=== PATIENT | female | born 1950 | race Caucasian/White ===

== ENCOUNTER 2019-09-19 12:04 | Emergency (ER) | payer OTHER ==
[~2019-09-19] VITALS: Wt 105.7 kg
[2019-09-19 12:37] LABS: BASO % 0.3 % (0.0-1.0); EOS # 0.2 10*3/uL (0.0-0.4); EOS % 2.4 % (1.0-4.0); HEMATOCRIT 33.2 % (37.0-47.0); HEMOGLOBIN 10.4 g/dl (12.0-16.0); LYMPH # 1.2 10*3/uL (1.3-4.4); LYMPH % 18.4 % (27.0-41.0); MEAN CELL VOLUME 103.1 fl (81.0-99.0); MEAN CORPUSCULAR HGB 32.3 pg (27.0-31.0); MEAN CORPUSCULAR HGB CONC 31.3 g/dl (33.0-37.0); MEAN PLATELET VOLUME 12.6 fl (9.6-12.3); MONO # 0.4 10*3/uL (0.1-1.0); MONO % 6.3 % (3.0-9.0); NEUT # 4.6 10*3/uL (2.3-7.9); NEUT % 72.3 % (47.0-73.0); PLATELET COUNT AUTOMATED 134 10*3/uL (130-400); RED BLOOD COUNT 3.22 10*6/uL (4.10-5.10); RED CELL DISTRI WIDTH 13.6 % (0-14.5); WHITE BLOOD COUNT 6.4 10*3/uL (4.8-10.8)
[2019-09-19 12:48] LABS: ACT PARTIAL THROMBO TIME 34.7 SECONDS (20.0-32.1); INTERNATIONAL NORM RATIO 0.9 (2.0-3.5)
[2019-09-19 12:55] LABS: ALBUMIN 2.9 gm/dl (3.1-4.5); ALKALINE PHOSPHATASE 46 U/L (45-117); BUN 34 mg/dl (7-24); CHLORIDE 108 mmol/L (98-107); CREATININE 2.21 mg/dL (0.55-1.02); POTASSIUM 4.5 mmol/L (3.5-5.1); SGOT/AST 14 IU/L (3-35); SGPT/ALT 17 U/L (12-78); SODIUM 141 mmol/L (136-145); TOTAL PROTEIN 6.2 gm/dL (6.4-8.2)
[2019-09-19 13:01] LABS: TROPONIN I < 0.015 ng/ml (<0.045)
== END 2019-09-19 15:08 | disposition short-term general hospital (02) ==
LOC: ED 12:04
PROVIDERS: Emergency Medicine
DX: R00.1 Bradycardia, unspecified (principal); R53.1 Weakness; R79.1 Abnormal coagulation profile; I10 Essential (primary) hypertension; K21.9 Gastro-esophageal reflux disease without esophagitis; E11.40 Type 2 diabetes mellitus with diabetic neuropathy, unspecified; I25.10 Atherosclerotic heart disease of native coronary artery without angina pectoris; Z86.73 Personal history of transient ischemic attack (TIA), and cerebral infarction without residual deficits

== ENCOUNTER 2020-03-24 13:46 | Inpatient (IN) | payer OTHER ==
[~2020-03-24] VITALS: Ht 170.1 cm; Wt 99.4 kg
[2020-03-24 13:49] VITALS: BP 136/57
[2020-03-24 14:58] LABS: BASO # 0.1 10*3/uL (0.0-0.1); BASO % 0.4 % (0.0-1.0); EOS # 0.1 10*3/uL (0.0-0.4); EOS % 0.3 % (1.0-4.0); HEMATOCRIT 34.8 % (37.0-47.0); LYMPH # 2.6 10*3/uL (1.3-4.4); LYMPH % 15.2 % (27.0-41.0); MEAN CELL VOLUME 104.8 fl (81.0-99.0); MEAN CORPUSCULAR HGB 31.9 pg (27.0-31.0); MEAN CORPUSCULAR HGB CONC 30.5 g/dl (33.0-37.0); MEAN PLATELET VOLUME 11.5 fl (9.6-12.3); MONO % 5.7 % (3.0-9.0); NEUT % 77.3 % (47.0-73.0); PLATELET COUNT AUTOMATED 214 10*3/uL (130-400); RED BLOOD COUNT 3.32 10*6/uL (4.10-5.10); WHITE BLOOD COUNT 16.8 10*3/uL (4.8-10.8)
[2020-03-24 15:13] LABS: ALBUMIN 3.2 gm/dl (3.1-4.5); CREATININE 2.87 mg/dL (0.55-1.02); TOTAL PROTEIN 7.3 gm/dL (6.4-8.2)
[2020-03-24 15:34] LABS: BILIRUBIN 1+ (NEGATIVE); CLARITY SL CLOUDY (CLEAR); COLOR YELLOW (YELLOW); GLUCOSE NEGATIVE (NEGATIVE); KETONE NEGATIVE (NEGATIVE)
[2020-03-24 15:35] LABS: BLOOD NEGATIVE (NEGATIVE); LEUKO ESTERASE NEGATIVE (NEGATIVE); NITRITE NEGATIVE (NEGATIVE); SPECIFIC GRAVITY 1.025 (1.005-1.030); UROBILINOGEN 0.2 E.U./dl (0.2-1.0)
[2020-03-24 15:39] LABS: BACTERIA TRACE; EPITHELIAL CELLS 0-2; WBC 0-2 wbc/hpf (0-5)
[2020-03-24 17:32] VITALS: BP 146/50
[2020-03-24] MEDS ORDERED: CLARITIN10 MG PO (18:49)
[2020-03-24] MEDS ORDERED: AMLODIPINE BESYL5 MG PO (18:49)
[2020-03-24] MEDS ORDERED: COLACE100 MG PO (18:49)
[2020-03-24] MEDS ORDERED: ESCITALOPRAM OX20 MG PO (18:50)
[2020-03-24] MEDS ORDERED: LANTUS SOL100 UNIT/1 SQ (18:51)
[2020-03-24] MEDS ORDERED: MELATONIN5 M6 PO (18:51)
[2020-03-24] MEDS ORDERED: LASIX40 MG PO (18:51)
[2020-03-24] MEDS ORDERED: METFORMIN HYDR500 MG PO (18:52)
[2020-03-24] MEDS ORDERED: MULTIVITAMINS1 EAC5 PO (18:52)
[2020-03-24] MEDS ORDERED: POTASSIUM CHLO20 ME3 PO (18:53)
[2020-03-24] MEDS ORDERED: RISPERIDONE0.25 M2 PO (18:54)
[2020-03-24] MEDS ORDERED: ATORVASTATIN CA10 M1 PO (18:54)
[2020-03-24] MEDS ORDERED: XALATAN 0.005%2.5 ML INTRAOC (18:54)
--- NOTE | 2020-03-24 18:54 | NUR ---
DR. SHAY NOTIFIED OF CONSULT.
[2020-03-24] MEDS ORDERED: GABAPENTIN600 MG PO (18:55)
[2020-03-24] MEDS ORDERED: ELIQUIS5 M1 PO (18:55)
[2020-03-24] MEDS ORDERED: GLIMEPIRIDE4 M1 PO (18:56)
[2020-03-24] MEDS ORDERED: OCEAN104 ML NAS (18:57)
[2020-03-24] MEDS ORDERED: HYDRALAZINE HC100 MG PO (18:58)
[2020-03-24] MEDS ORDERED: 8 HOUR PAIN RE650 M1 PO (18:58)
[2020-03-24] MEDS ORDERED: TUMS200 MG PO (18:59)
[2020-03-24] MEDS ORDERED: METHOCARBAMOL500 M1 PO (18:59)
[2020-03-24] MEDS ORDERED: LOPERAMIDE HCL2 MG PO (18:59)
[2020-03-24 19:00] VITALS: BP 128/42
[2020-03-24] MEDS ORDERED: ONDANSETRON4 MG SL (19:00)
[2020-03-24 19:58] LABS: ABG BASE EXCESS -0.8 mmol/L (-2.0-2.0); ARTERIAL BLOOD GAS PH 7.28 (7.35-7.45)
--- NOTE | 2020-03-24 19:58 | NUR ---
DR. BHATT NOTIFIED OF CRITICAL TROPONIN OF 0.115.
[2020-03-24 20:00] VITALS: BP 142/54
--- NOTE | 2020-03-24 20:15 | NUR ---
DR. BHATT NOTIFIED OF CRITICAL LACTIC ACID OF 2.8.
--- NOTE | 2020-03-24 22:40 | NUR ---
DR. BLANCAS NOTIFIED THAT PATIENT HAS A CRITICAL TROPONIN OF 0.158 AND LACTIC ACID OF 2.5.
[2020-03-25] VITALS: BP 143/48
--- NOTE | 2020-03-25 01:07 | NUR ---
DR. BLANCAS NOTIFIED OF CRITICAL TROPONIN OF 0.190.
[2020-03-25 06:41] LABS: BASO # 0.1 10*3/uL (0.0-0.1); BASO % 0.4 % (0.0-1.0); EOS # 0.1 10*3/uL (0.0-0.4); EOS % 0.5 % (1.0-4.0); HEMATOCRIT 32.1 % (37.0-47.0); LYMPH # 1.5 10*3/uL (1.3-4.4); LYMPH % 13.1 % (27.0-41.0); MEAN CELL VOLUME 103.5 fl (81.0-99.0); MEAN CORPUSCULAR HGB 31.6 pg (27.0-31.0); MEAN CORPUSCULAR HGB CONC 30.5 g/dl (33.0-37.0); MEAN PLATELET VOLUME 11.7 fl (9.6-12.3); MONO # 0.7 10*3/uL (0.1-1.0); MONO % 6.5 % (3.0-9.0); NEUT # 8.9 10*3/uL (2.3-7.9); NEUT % 78.1 % (47.0-73.0); PLATELET COUNT AUTOMATED 191 10*3/uL (130-400); RED CELL DISTRI WIDTH 14.8 % (0-14.5); WHITE BLOOD COUNT 11.4 10*3/uL (4.8-10.8)
[2020-03-25 07:01] LABS: ACT PARTIAL THROMBO TIME 38.8 SECONDS (20.0-32.1)
[2020-03-25 07:07] LABS: POTASSIUM 5.1 mmol/L (3.5-5.1)
[2020-03-25 07:37] LABS: CREATININE 3.3 mg/dL (0.55-1.02); FREE T4 0.98 ng/dl (0.76-1.46); THYROID STIM HORMONE (HS) 4.45 uIU/ml (0.358-4.75)
[2020-03-25 07:53] LABS: VITAMIN D, 25-HYDROXY 21.4 ng/mL (30-100)
[2020-03-25 08:00] VITALS: BP 136/70
--- NOTE | 2020-03-25 11:12 | NUR ---
PT WAS ADMITTED FROM [facility]. WILL RETURN TO [facility] WHEN MEDICALLY STABLE. WILL REQUIRE PRECERT AND NEG COVID PRIOR TO RETURNING. WILL CONTINUE TO FOLLOW.
[2020-03-25 12:00] VITALS: BP 129/64
[2020-03-25 14:00] VITALS: BP 129/64
[2020-03-25 16:00] VITALS: BP 134/69
[2020-03-25 20:00] VITALS: BP 161/56
--- NOTE | 2020-03-25 22:38 | NUR ---
JESUS CATH INSERTED PER DR. RAM'S CONSULT NOTE ORDER. PATIENT TOLERATED WELL. 500CC RETURN INSTANTLY. WILL CONTINUE TO MONITOR. CALL LIGHT IN REACH.
[2020-03-26] VITALS: BP 148/53
--- NOTE | 2020-03-26 05:26 | NUR ---
PATIENT MEDICATED WITH TYLENOL FOR COMPLAINTS OF HIP PAIN. WILL CONTINUE TO MONITOR. JESUS CATH PATENT DRAINING YELLOW URINE. NO SIGNS OR SYMPTOMS OF DISTRESS NOTED.
[2020-03-26 08:00] VITALS: BP 146/66
[2020-03-26 08:53] LABS: BASO % 0.4 % (0.0-1.0); EOS # 0.2 10*3/uL (0.0-0.4); EOS % 1.7 % (1.0-4.0); HEMATOCRIT 31.1 % (37.0-47.0); LYMPH # 1.5 10*3/uL (1.3-4.4); LYMPH % 15.1 % (27.0-41.0); MEAN CORPUSCULAR HGB 31.8 pg (27.0-31.0); MEAN CORPUSCULAR HGB CONC 31.5 g/dl (33.0-37.0); MEAN PLATELET VOLUME 11.2 fl (9.6-12.3); MONO # 0.5 10*3/uL (0.1-1.0); NEUT # 7.6 10*3/uL (2.3-7.9); NEUT % 77.2 % (47.0-73.0); PLATELET COUNT AUTOMATED 166 10*3/uL (130-400); RED BLOOD COUNT 3.08 10*6/uL (4.10-5.10); RED CELL DISTRI WIDTH 14.4 % (0-14.5); WHITE BLOOD COUNT 9.9 10*3/uL (4.8-10.8)
[2020-03-26 09:03] LABS: CREATININE 2.41 mg/dL (0.55-1.02)
[2020-03-26 09:05] LABS: POTASSIUM 4.1 mmol/L (3.5-5.1)
[2020-03-26 12:00] VITALS: BP 132/50
--- NOTE | 2020-03-26 12:52 | NUR ---
DR RAM ROUNDED AND NO NEW ORDERS.
--- NOTE | 2020-03-26 14:45 | NUR ---
NORCO 5/325 MG GIVEN FOR C/O GENERALIZED PAIN.07/15.
[2020-03-26 16:00] VITALS: BP 149/63
[2020-03-26 20:00] VITALS: BP 145/54
--- NOTE | 2020-03-26 20:00 | NUR ---
PATIENT ASSESSMENT COMPLETED AT THIS TIME WITHOUT INCIDENT. PATIENT DENIES NIKIA CHEST PAIN, SHORTNESS OF BREATH OR NEEDS AT THIS TIME. CALL LIGHT WITHIN REACH, WILL CONTINUE TO MONITOR.
--- NOTE | 2020-03-26 21:52 | NUR ---
PRN NORCO GIVEN AT THIS TIME FOR PATIENT COMPLAINT OF 6/10 PAIN IN HER VAGINA. A&O X2, CALL LIGHT WITHIN REACH, WILL CONTINUE TO MONITOR.
--- NOTE | 2020-03-26 22:42 | NUR ---
PATIENT RESTING IN BED IN A POSITION OF COMFORT WITH EYES CLOSED AT THIS TIME, RESPIRATIONS EASY AND NON-LABORED ON NC 2LPM. PRN NORCO APPEARS EFFECTIVE AT THIS TIME, CALL LIGHT WITHIN REACH, WILL CONTINUE TO MONITOR.
[2020-03-27] VITALS: BP 143/64
--- NOTE | 2020-03-27 01:07 | NUR ---
24 HOUR CHART CHECK COMPLETE
--- NOTE | 2020-03-27 02:08 | NUR ---
PRN TYLENOL GIVEN PO AT THIS TIME FOR COMPLAINT OF BACK PAIN, WHEN ASKED THE NUMERICAL SEVERITY OF HER PAIN THE PATIENT REPEATED "MY BACK, MY BACK HURTS". A&O X2, CALL LIGHT WITHIN REACH. WILL CONTINUE TO MONITOR.
--- NOTE | 2020-03-27 03:00 | NUR ---
PATIENT RESTING IN BED IN A POSITION OF COMFORT WITH EYES CLOSED AT THIS TIME, RESPIRATIONS EASY AND NON-LABORED AT THIS TIME. PRN TYLENOL APPEARS EFFECTIVE AT THIS TIME. CALL LIGHT WITHIN REACH, WILL CONTINUE TO MONITOR.
[2020-03-27 06:27] LABS: BASO % 0.3 % (0.0-1.0); EOS # 0.2 10*3/uL (0.0-0.4); EOS % 2.5 % (1.0-4.0); HEMATOCRIT 31.4 % (37.0-47.0); LYMPH % 13.2 % (27.0-41.0); MEAN CELL VOLUME 98.4 fl (81.0-99.0); MEAN CORPUSCULAR HGB 32.3 pg (27.0-31.0); MEAN CORPUSCULAR HGB CONC 32.8 g/dl (33.0-37.0); MEAN PLATELET VOLUME 11.7 fl (9.6-12.3); MONO # 0.4 10*3/uL (0.1-1.0); NEUT # 5.6 10*3/uL (2.3-7.9); NEUT % 77.3 % (47.0-73.0); PLATELET COUNT AUTOMATED 182 10*3/uL (130-400); RED BLOOD COUNT 3.19 10*6/uL (4.10-5.10); RED CELL DISTRI WIDTH 13.8 % (0-14.5); WHITE BLOOD COUNT 7.2 10*3/uL (4.8-10.8)
[2020-03-27 06:58] LABS: ALBUMIN 2.9 gm/dl (3.1-4.5); CREATININE 1.66 mg/dL (0.55-1.02); POTASSIUM 3.5 mmol/L (3.5-5.1)
[2020-03-27 08:00] VITALS: BP 128/58
--- NOTE | 2020-03-27 10:07 | NUR ---
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 PATIENT WILL NEED COVID TEST TO RETURN WHEN MEDICALLY STABLE.
[2020-03-27 12:00] VITALS: BP 134/57
--- NOTE | 2020-03-27 13:20 | NUR ---
FRONT COUNTER ATTENDANT FAXED UPDATES TO [facility]
[2020-03-27 16:00] VITALS: BP 161/59
[2020-03-27 20:00] VITALS: BP 146/65
--- NOTE | 2020-03-27 20:25 | NUR ---
PATIENT ASSESSMENT COMPLETED AT THIS TIME WITHOUT INCIDENT. PATIENT DENIES ANY CHEST PAIN, SOB, OR DISTRESS AT THIS TIME. A&O X3 CALL LIGHT WITHIN REACH, WILL CONTINUE TO MONITOR
[2020-03-28] VITALS: BP 151/56
[2020-03-28 06:34] LABS: BASO % 0.3 % (0.0-1.0); EOS # 0.1 10*3/uL (0.0-0.4); EOS % 2.2 % (1.0-4.0); HEMATOCRIT 34.4 % (37.0-47.0); LYMPH # 0.9 10*3/uL (1.3-4.4); LYMPH % 15.1 % (27.0-41.0); MEAN CORPUSCULAR HGB 31.6 pg (27.0-31.0); MEAN CORPUSCULAR HGB CONC 32.3 g/dl (33.0-37.0); MEAN PLATELET VOLUME 12.3 fl (9.6-12.3); MONO # 0.4 10*3/uL (0.1-1.0); MONO % 6.2 % (3.0-9.0); NEUT # 4.5 10*3/uL (2.3-7.9); NEUT % 75.9 % (47.0-73.0); PLATELET COUNT AUTOMATED 194 10*3/uL (130-400); RED BLOOD COUNT 3.51 10*6/uL (4.10-5.10)
[2020-03-28 06:45] LABS: CREATININE 1.41 mg/dL (0.55-1.02); POTASSIUM 3.3 mmol/L (3.5-5.1)
--- NOTE | 2020-03-28 08:10 | NUR ---
MEDICATED WITH PRN PO NORCO FOR C/O GENERALIZED BODY ACHING.
--- NOTE | 2020-03-28 09:00 | NUR ---
case management visits with patient, she is a [facility] resident of [facility] and will return when medically stable, case management will follow
--- NOTE | 2020-03-28 09:02 | NUR ---
PRN PO NORCO EFFECTIVE, PER PATIENT.
--- NOTE | 2020-03-28 11:06 | NUR ---
PHYSICAL THERAPY Initial eval done at bedside. See eval for details. brief synopsis: requires total assist supine to sit to supine; sttod from bed x4 efforts with initially needing mod assist, then max assist for 10-20 sec each time. recommend dc back to long-term care. Griselda Cohn, PT
[2020-03-28 12:00] VITALS: BP 138/57
--- NOTE | 2020-03-28 15:52 | NUR ---
Nutritional Support Services Note: Dx o CHF, sepsis and CVA. Appetite is fair for meals. She receives a cardiac diet as ordered with 1500cc fluid restriction. Staff to encourage intake. She declined a supplement at this time, will send a night snack. Will follow as needed. Maday Claire Rdn Ld
[2020-03-28 16:00] VITALS: BP 160/58
[2020-03-28 20:00] VITALS: BP 176/64
--- NOTE | 2020-03-28 20:05 | NUR ---
PATIENT RESTING IN BED IN A POSITION OF COMFORT AT THIS TIME WATCHING TELEVISION. PATIENT ASSESSMENT COMPLETED WITHOUT INCIDENT, PATIENT DENIES ANY PAIN, SHORTNESS OF BREATH, OR OTHER DISTRESS AT THIS TIME. CALL LIGHT WITHIN REACH, WILL CONTINUE TO MONITOR.
--- NOTE | 2020-03-28 21:17 | NUR ---
PRN NORCO GIVEN AT THIS TIME FOR PATIENT COMPLAINT OF BACK AND BILATERAL LEG PAIN 5/10 AT THIS TIME. PRN RESTORIL GIVEN AT THIS TIME PATIENT STATED "I'M SO TIRED BUT I CAN'T FALL ASLEEP". A&O X3 AT THIS TIME, CALL LIGHT WITHIN REACH, WILL CONTINUE TO FOLLOW.
--- NOTE | 2020-03-28 22:05 | NUR ---
PATIENT RESTING IN BED IN A POSITION OF COMFORT, REQUESTING TELEVISION AND LIGHTS BE TURNED OFF SO THAT SHE CAN GO TO SLEEP. A&O X3, CALL LIGHT WITHIN REACH, WILL CONTINUE TO MONITOR.
[2020-03-29] VITALS: BP 154/56
--- NOTE | 2020-03-29 00:15 | NUR ---
PATIENT RESTING IN BED IN A POSITION OF COMFORT WITH EYES CLOSED, RESPIRATIONS EASY AND NON-LABORED AT THIS TIME WITH NASAL CANNULA 2LPM IN USE. CALL LIGHT WITHIN REACH, BED ALARM ON AND FUNCTIONAL. WILL CONTINUE TO MONITOR.
--- NOTE | 2020-03-29 04:45 | NUR ---
PATIENT RESTING IN BED AT THIS TIME AFTER BEING REPOSITIONED AND CHECKED FOR INCONTINENCE. PATIENT DENIES ANY PAIN, DISTRESS, OR NEEDS AT THIS TIME. CALL LIGHT WITHIN REACH, WILL CONTINUE TO MONITOR.
[2020-03-29 07:02] LABS: CREATININE 1.4 mg/dL (0.55-1.02); POTASSIUM 3.2 mmol/L (3.5-5.1)
[2020-03-29 08:00] VITALS: BP 168/70
--- NOTE | 2020-03-29 10:18 | NUR ---
PHYSICAL THERAPY Pt seen at bedside this morning. O2 was out of nose; pt not as alert as yesterday and had no memory of who I am (yesterday she knew me and recalled me seeing her at a previous facility). Very lethargic. Unable to attempt to sit at edge of bed nor stand this morning due to amount of lethargy; treated with active assist to passive ROM ex all 4 extremities in hopes of further arousing pt but this was not effective. If time allows will ask other PT staff to check in on her later in day to see if appropriate for functional training at that time. Total time: 16 min Griselda Cohn, PT
[2020-03-29] MEDS ORDERED: FUROSEMIDE40 MG PO (11:16)
--- NOTE | 2020-03-29 11:39 | NUR ---
Occupational Therapy evaluation completed on 5E with full evaluation to follow. Recommend occupational therapy per plan of care and return to senior living care facility upon discharge. Thank you for this referral. Gilma Gonzalez OTR/L
--- NOTE | 2020-03-29 11:45 | NUR ---
BOBBIN CLEANER HAND NOTIFIED OF PATIENT DISCHARGE. BOBBIN CLEANER HAND SPOKE WITH RN. BOBBIN CLEANER HAND SPOKE WITH [facility]. THEY ARE ABLE TO TRANSPORT THE PATIENT TODAY AT 2PM. BOBBIN CLEANER HAND NOTIFIED [facility]. [employer]OB[employer] CLEANER HAND TO FAX DISCHARGE ORDERS TO [facility]. BOBBIN CLEANER HAND NOTIFIED PATIENTS BROTHER DIANE OF THE PATIENT RETURNING TO [facility].
--- NOTE | 2020-03-29 14:08 | NUR ---
Discharge instructions reviewed with patient/family. Patient receptive and verbalizes understanding. Follow-up care arranged. Written instructions given to patient/family. MARQUIS PERALTA
== END 2020-03-29 14:08 | DRG 871 ==
LOC: ED 13:46 → 5E 18:14 → EDHOLD 18:14 → 5E 18:26
PROVIDERS: Emergency Medicine; Internal Medicine; Student in an Organized Health Care Education/Training Program; ADMIT Emergency Medicine
DX: A41.9 Sepsis, unspecified organism (principal); G93.41 Metabolic encephalopathy; N17.0 Acute kidney failure with tubular necrosis; I69.354 Hemiplegia and hemiparesis following cerebral infarction affecting left non-dominant side; E87.2 Acidosis; I50.9 Heart failure, unspecified; D53.9 Nutritional anemia, unspecified; E11.65 Type 2 diabetes mellitus with hyperglycemia; I48.91 Unspecified atrial fibrillation; I25.10 Atherosclerotic heart disease of native coronary artery without angina pectoris; G40.909 Epilepsy, unspecified, not intractable, without status epilepticus; F32.9 Major depressive disorder, single episode, unspecified; I11.0 Hypertensive heart disease with heart failure; M1A.9XX0 Chronic gout, unspecified, without tophus (tophi); Z79.899 Other long term (current) drug therapy; Z79.4 Long term (current) use of insulin; Z79.01 Long term (current) use of anticoagulants; Z03.818 Encounter for observation for suspected exposure to other biological agents ruled out

== ENCOUNTER 2022-02-26 12:45 | Emergency (ER) | payer OTHER, MEDICAID ==
[~2022-02-26] VITALS: Ht 167.6 cm; Wt 106.6 kg
[~2022-02-26 12:45] MED LIST: 8 HOUR PAIN RE650 M1 PO; ALBUTEROL0.63 MG/3 INH; AMLODIPINE BESYL5 MG PO; ANTACID SUSPEN355 M1 PO; ATORVASTATIN CA10 M1 PO; Amaryl2 MG PO; BETIMOL5 ML OP; CLARITIN10 MG PO; COLACE100 MG PO; COMBIGAN 0.2%-010 ML OP; CRESTOR10 M1 PO; DIABETIC T100 MG/52 PO; ELIQUIS5 M1 PO; ESCITALOPRAM OX20 MG PO; FLONASE ALLERG9.9 ML NAS; FUROSEMIDE40 MG PO; GABAPENTIN400 MG PO; GABAPENTIN600 MG PO; GLIMEPIRIDE4 M1 PO; HYDRALAZINE HC100 MG PO; IRON325 M1 PO; K-TAB10 MEQ PO; KETOROLAC TROMET5 M3 OP; LANTUS SOL100 UNIT/1 SC; LANTUS SOL100 UNIT/1 SQ; LASIX20 MG PO; LASIX40 MG PO; LINZESS145 MC1 PO; LOPERAMIDE HCL2 MG PO; LUMIGAN50 DRP OPH; MELATONIN5 M1 SL; MELATONIN5 M6 PO; METFORMIN HYDR500 MG PO; METHOCARBAMOL500 M1 PO; MULTIPLE VITAM1 EAC2 PO; MULTIVITAMINS1 EAC5 PO; MUSCLE RUB CREA35 GM T; NOVOLOG10 ML SC; OCEAN104 ML NAS; ONDANSETRON4 MG SL; OXYBUTYNIN CHLOR5 M1 PO; POTASSIUM CHLO20 ME3 PO; REQUIP2 MG PO; RISPERIDONE0.25 M2 PO; SALINE NASAL SP88 ML NAS; TUMS200 MG PO; ULTRAM50 MG PO; XALATAN 0.005%2.5 ML INTRAOC; ZYLOPRIM100 MG PO
[2022-02-26 14:15] LABS: BASO % 0.4 % (0.0-1.0); EOS # 0.3 10*3/uL (0.0-0.4); EOS % 3.8 % (1.0-4.0); HEMATOCRIT 28.4 % (37.0-47.0); LYMPH % 14.6 % (27.0-41.0); MEAN CELL VOLUME 98.3 fl (81.0-99.0); MEAN CORPUSCULAR HGB 30.4 pg (27.0-31.0); MEAN PLATELET VOLUME 12.1 fl (9.6-12.3); MONO # 0.4 10*3/uL (0.1-1.0); MONO % 5.1 % (3.0-9.0); NEUT # 5.4 10*3/uL (2.3-7.9); NEUT % 75.8 % (47.0-73.0); PLATELET COUNT AUTOMATED 160 10*3/uL (130-400); RED BLOOD COUNT 2.89 10*6/uL (4.10-5.10); RED CELL DISTRI WIDTH 15.5 % (0-14.5); WHITE BLOOD COUNT 7.1 10*3/uL (4.8-10.8)
[2022-02-26 14:27] LABS: INTERNATIONAL NORM RATIO 1.1 (2.0-3.5)
[2022-02-26 14:27] LABS: BILIRUBIN Negative (Negative); BLOOD Negative (Negative); CLARITY Clear (Clear); COLOR Yellow (Yellow); GLUCOSE Negative (Negative); KETONE Negative (Negative); LEUKO ESTERASE Negative (Negative); NITRITE Negative (Negative); PH 5.5 (4.5-8.0); SPECIFIC GRAVITY 1.015 (1.001-1.030); UROBILINOGEN 0.2 E.U./dl (0.0-1.0)
[2022-02-26 14:33] LABS: CREATININE 1.99 mg/dL (0.55-1.02); POTASSIUM 3.6 mmol/L (3.5-5.1)
[2022-02-26 14:58] LABS: BACTERIA 2+; COARSE GRANULAR CAST 0-2
== END 2022-02-26 16:35 | disposition home or self-care (01) ==
LOC: ED 12:45
PROVIDERS: Physician Assistant
DX: M54.50 Low back pain, unspecified (principal); M25.561 Pain in right knee; M25.562 Pain in left knee; M25.522 Pain in left elbow; M25.521 Pain in right elbow; Z88.2 Allergy status to sulfonamides; Z91.013 Allergy to seafood; Z91.040 Latex allergy status; Z79.899 Other long term (current) drug therapy; W18.39XA Other fall on same level, initial encounter; Y93.89 Activity, other specified; Y92.89 Other specified places as the place of occurrence of the external cause; Y99.8 Other external cause status

== ENCOUNTER → 2022-04-19 | Outpatient (CLI) | payer OTHER, MEDICAID | END | disposition home or self-care (01) | LOC: CT 04-17 11:00 | PROVIDERS: ATTEND Urology | DX: K80.20 Calculus of gallbladder without cholecystitis without obstruction (principal); J98.11 Atelectasis; D25.9 Leiomyoma of uterus, unspecified; N39.0 Urinary tract infection, site not specified ==

== ENCOUNTER → 2022-05-13 | Outpatient (CLI) | payer OTHER, MEDICAID ==
[2022-05-13 14:49] LABS: CREATININE 1.9 mg/dL (0.55-1.02)
== END | disposition home or self-care (01) ==
LOC: MRI 14:00 → LAB 14:14 → MRI 14:14
PROVIDERS: Radiology Diagnostic Radiology; ATTEND Urology
DX: K76.0 Fatty (change of) liver, not elsewhere classified (principal); R16.0 Hepatomegaly, not elsewhere classified; K80.80 Other cholelithiasis without obstruction; N28.1 Cyst of kidney, acquired; K44.9 Diaphragmatic hernia without obstruction or gangrene; M47.819 Spondylosis without myelopathy or radiculopathy, site unspecified; M41.9 Scoliosis, unspecified